=== PATIENT | female | born 1945 | race Caucasian/White ===

== ENCOUNTER 2021-06-09 11:19 | Emergency (ER) | payer MEDICAID ==
[~2021-06-09] VITALS: Ht 149.9 cm; Wt 69.6 kg
[2021-06-09 11:21] VITALS: BP 156/70
--- NOTE | 2021-06-09 11:34 | NUR ---
Patient ambulated with steady gait to bed 6.
[2021-06-09] MEDS ORDERED: KETOROLAC 30 MG/ML VIAL IM ONE (12:00)
[2021-06-09] MEDS ORDERED: IBUP-1842 PO (12:33)
[2021-06-09] MEDS ORDERED: NITR100C7 PO (14:19)
[2021-06-09 15:08] VITALS: BP 145/80
--- NOTE | 2021-06-09 15:08 | NUR ---
Patient discharged with v/s stable. Written and verbal after care instructions ABOUT FLANK PAIN given and explained. Patient alert, oriented and verbalized understanding of instructions. Ambulatory with steady gait. All questions addressed prior to discharge. ID band removed. Patient advised to follow up with PMD. Rx of MOTRIN AND MACROBID given.
--- NOTE | 2021-06-09 15:09 | NUR ---
Chart checked and completed. The patient's care was reviewed and supervised by Kristyn Mena RN.
== END 2021-06-09 15:08 | disposition home or self-care (01) ==
LOC: MED 11:19
DX: N39.0 Urinary tract infection, site not specified (principal); Z88.2 Allergy status to sulfonamides
CPT/HCPCS: 81002; 96372; 99283; J1885

== ENCOUNTER 2021-08-13 15:35 | Emergency (ER) | payer MEDICAID ==
[~2021-08-13] VITALS: Ht 157.5 cm; Wt 109.8 kg
[~2021-08-13 15:35] MED LIST: IBUP-1842 PO; NITR100C7 PO
[2021-08-13 15:41] VITALS: BP 127/62
[2021-08-13] MEDS ORDERED: NACL 0.9% 500 ML IV ONE (17:05)
[2021-08-13 17:37] LABS: BASOPHILS % (AUTO) 0.4 % (0.0-2.0); EOSINOPHILS # (AUTO) 0.1 K/uL (0-0.4); EOSINOPHILS % (AUTO) 1.4 % (0.0-4.0); HEMATOCRIT 37.6 % (36-48); HEMOGLOBIN 12.8 g/dL (12.0-16.0); LYMPHOCYTES # (AUTO) 2.3 K/uL (2.5-16.5); LYMPHOCYTES % (AUTO) 30.9 % (20.5-51.1); MEAN CORPUSCULAR HEMOGLOBIN 30 pg (27-31); MEAN CORPUSCULAR HGB CONC 34 g/dL (33-37); MEAN CORPUSCULAR VOLUME 89.1 fL (80-94); MONOCYTES # (AUTO) 0.7 K/uL (0.8-1.0); MONOCYTES % (AUTO) 9.3 % (1.7-9.3); NEUTROPHILS # (AUTO) 4.2 K/uL (1.8-7.7); PLATELET COUNT (AUTO) 315 K/uL (140-450); RED BLOOD CELL COUNT(AUTO) 4.22 MIL/uL (4.20-5.40); RED CELL DISTRIBUTION WIDTH 13.3 % (11.6-13.7); WHITE BLOOD COUNT (AUTO) 7.3 K/uL (4.8-10.8)
[2021-08-13 17:54] LABS: ANION GAP 14.2 (8-16); CARBON DIOXIDE 24.3 mmol/L (21-32); CHLORIDE 98 mmol/L (98-107); CREATININE 1.3 mg/dL (0.6-1.3); GLUCOSE 359 mg/dL (74-106); POTASSIUM 4.5 mmol/L (3.5-5.1); SODIUM SERUM 132 mmol/L (136-145); UREA NITROGEN, BLOOD 19 mg/dL (7-18)
--- NOTE | 2021-08-13 18:05 | NUR ---
76/F BIB DAUGHTER WITH C/O HYPERGLYCEMIA, REPORTS ABDOMINAL PAIN N/V SINCE THIS MORNING. PATIENT STATES HER SUGAR HAS BEEN IN THE "400S ALL WEEK" 371 IN TRIAGE. PATIENT DENIES TAKING MEDS AT HOME, DENIES WEAKNESS, CONFUSION, DIZZINESS OR VISION CHANGES.
--- NOTE | 2021-08-13 19:00 | NUR ---
LAST ACCUCHECK UPON D/C 330, DR. MCCORMICK AWARE AND STATED PATIENT OKAY TO BE D/C
[2021-08-13 19:18] VITALS: BP 131/63
--- NOTE | 2021-08-13 19:19 | NUR ---
Patient discharged with v/s stable. Written and verbal after care instructions ABOUT HYPERGLYCEMIA AND INSULIN GLARGINE INJECTION given and explained. Patient verbalized understanding. Ambulatory with steady gait. All questions addressed prior to discharge. Advised to follow up with PMD.
--- NOTE | 2021-08-13 19:19 | NUR ---
IV removed, catheter intact and site benign. Applied folded 4x4 gauze and tape to stop bleeding.
== END 2021-08-13 19:10 | disposition home or self-care (01) ==
LOC: MED 15:35
DX: E11.65 Type 2 diabetes mellitus with hyperglycemia (principal); I50.9 Heart failure, unspecified; Z79.2 Long term (current) use of antibiotics; Z79.1 Long term (current) use of non-steroidal anti-inflammatories (NSAID); Z88.2 Allergy status to sulfonamides
CPT/HCPCS: 36415; 80048; 81002; 82948; 83735; 85025; 96360; 99283; J7030

== ENCOUNTER 2022-01-01 15:18 | Emergency (ER) | payer MEDICAID ==
[~2022-01-01] VITALS: Ht 147.3 cm; Wt 69.9 kg
[2022-01-01 15:20] VITALS: BP 137/82
--- NOTE | 2022-01-01 15:32 | NUR ---
PT W/C ASSISTED TO BED 4.
[2022-01-01] MEDS ORDERED: HYDROcodone/APAP 5/325 MG 1 TAB TAB PO ONE (15:45)
--- NOTE | 2022-01-01 16:04 | NUR ---
PT C/O LEFT HIP PAIN RADIATING DOWN LEFT LEG X1 WEEK. DENIES INJURY OR TRAUMA.
[2022-01-01] MEDS ORDERED: LID5T TP (16:58)
[2022-01-01] MEDS ORDERED: CEPH-588 PO (16:58)
[2022-01-01] MEDS ORDERED: ACET-8386 PO (16:58)
--- NOTE | 2022-01-01 17:06 | NUR ---
Patient discharged with v/s stable. Written and verbal after care instructions given and explained. Patient alert, oriented and verbalized understanding of instructions. Ambulatory with steady gait. All questions addressed prior to discharge. ID band removed. Patient advised to follow up with PMD. Rx of NORCO, LIDODERM, KEFLEX given. Patient educated on indication of medication including possible reaction and side effects. Opportunity to ask questions provided and answered.
== END 2022-01-01 17:06 | disposition home or self-care (01) ==
LOC: MED 15:18
DX: S76.012A Strain of muscle, fascia and tendon of left hip, initial encounter (principal); M54.10 Radiculopathy, site unspecified; N39.0 Urinary tract infection, site not specified; E11.9 Type 2 diabetes mellitus without complications; Z79.899 Other long term (current) drug therapy; X58.XXXA Exposure to other specified factors, initial encounter; Y93.89 Activity, other specified; Y92.89 Other specified places as the place of occurrence of the external cause; Y99.8 Other external cause status
CPT/HCPCS: 72170; 73552; 81002; 82948; 87086; 99284; Q0092

== ENCOUNTER 2022-06-16 10:40 | Inpatient (IN) | payer MEDICAID, OTHER ==
[~2022-06-16] VITALS: Ht 139.7 cm; Wt 68.0 kg
[~2022-06-16 10:40] MED LIST changes: +ACET-8905 PO; +CEPH-588 PO; +LID5T TP
[2022-06-16 10:50] VITALS: BP 149/69
[2022-06-16 11:09] LABS: BASOPHILS % (AUTO) 0.4 % (0.0-2.0); EOSINOPHILS % (AUTO) 0.4 % (0.0-4.0); HEMATOCRIT 40.7 % (36-48); HEMOGLOBIN 13.6 g/dL (12.0-16.0); LYMPHOCYTES # (AUTO) 2.2 K/uL (2.5-16.5); LYMPHOCYTES % (AUTO) 21.2 % (20.5-51.1); MEAN CORPUSCULAR HEMOGLOBIN 30 pg (27-31); MEAN CORPUSCULAR HGB CONC 34 g/dL (33-37); MEAN CORPUSCULAR VOLUME 88.9 fL (80-94); MONOCYTES # (AUTO) 0.6 K/uL (0.8-1.0); MONOCYTES % (AUTO) 5.8 % (1.7-9.3); NEUTROPHILS # (AUTO) 7.4 K/uL (1.8-7.7); NEUTROPHILS % (AUTO) 72.2 % (42.2-75.2); PLATELET COUNT (AUTO) 243 K/uL (140-450); RED BLOOD CELL COUNT(AUTO) 4.57 MIL/uL (4.20-5.40); RED CELL DISTRIBUTION WIDTH 15.1 % (11.6-13.7); WHITE BLOOD COUNT (AUTO) 10.3 K/uL (4.8-10.8)
[2022-06-16 11:37] LABS: ALBUMIN 3.8 g/dL (3.4-5.0); ANION GAP 16.1 (8-16); ASPARTATE AMINOTRANSFERASE 27 U/L (15-37); CARBON DIOXIDE 24.4 mmol/L (21-32); CHLORIDE 97 mmol/L (98-107); CREATININE 0.9 mg/dL (0.6-1.3); GLUCOSE 243 mg/dL (74-106); LIPASE 116 U/L (73-393); POTASSIUM 4.5 mmol/L (3.5-5.1); SODIUM SERUM 133 mmol/L (136-145); TOTAL BILIRUBIN 0.5 mg/dL (0.0-1.0); UREA NITROGEN, BLOOD 16 mg/dL (7-18)
[2022-06-16] MEDS ORDERED: ASPIRIN 325 MG TAB PO ONE (12:35)
[2022-06-16] MEDS ORDERED: ASPIRIN 325 MG TAB ONE (12:38)
[2022-06-16] MEDS ORDERED: TRAM50TA3 PO (15:02)
[2022-06-16] MEDS ORDERED: BENA20TA89 PO (15:02)
[2022-06-16] MEDS ORDERED: SITA100T8 PO (15:02)
[2022-06-16] MEDS ORDERED: ATOR20TA40 PO (15:02)
[2022-06-16] MEDS ORDERED: GLIP10TA12 PO (15:02)
[2022-06-16] MEDS ORDERED: CEPH500C16 PO (15:02)
[2022-06-16] MEDS ORDERED: METF-352 PO (15:02)
[2022-06-16] MEDS ORDERED: LORazepam 1 MG TAB PO PRN (15:30)
[2022-06-16] MEDS ORDERED: traMADol 50 MG TAB PO PRN (15:30)
[2022-06-16] MEDS ORDERED: MORPHINE SULFATE 2 MG/ML SYR IVP PRN (15:30)
[2022-06-16] MEDS ORDERED: NITROGLYCERIN 0.4 MG TAB SL PRN (15:30)
[2022-06-16] MEDS ORDERED: ZOLPIDEM 5 MG TAB PO PRN (15:30)
[2022-06-16] MEDS ORDERED: ACETAMINOPHEN 325 MG TAB PO PRN (15:30)
[2022-06-16] MEDS ORDERED: HYDROcodone/APAP 5/325 MG 1 TAB TAB PO PRN (15:30)
--- NOTE | 2022-06-16 15:31 | NUR ---
STEPHAN, NUCLEAR MED CALLED REGARDING ORDER;PER STEPHAN CAMERA IS DOWN, PROVIDED CONTACT # FOR
--- NOTE | 2022-06-16 15:59 | NUR ---
VOIDING PER BEDPAN X3, NOT UNUSUAL PER PT
--- NOTE | 2022-06-16 16:12 | NUR ---
admitted from emergency rn Priyank in rm 119 aox4 tajik speaking with admitting diagnosis ofchest pain. will continue to monitor .
--- NOTE | 2022-06-16 17:07 | NUR ---
Patient will be admitted to care of . Admited to [facility]. Will go to [id number]. Belongings list completed. Report to JAZMIN CEBALLOS.
--- NOTE | 2022-06-16 19:14 | NUR ---
will endorse to line installer rn for continuity of care
--- NOTE | 2022-06-16 19:20 | NUR ---
RECEIVED PATIENT LYING ON THE BED, HOB ELEVATED, PATIENT DENIES CHEST PAIN UPON ASSESSMENT, IN NO ACUTE DISTRESS. FAMILY AT BEDSIDE. CALL LIGHT WITHIN REACH.
[2022-06-16 20:00] VITALS: BP 129/57
[2022-06-16] MEDS ORDERED: DEXTROSE 50% 50 ML SYR IVP PRN (20:45)
[2022-06-16] MEDS: BLOOD GLUCOSE MONITORING 1 DEV DEV FS SCH (21:17)
[2022-06-16] MEDS: SODIUM CHLORIDE FLUSH 10 ML SYR IVF SCH (21:18)
[2022-06-16] MEDS: INSULIN LISPRO SLIDING SCALE 100 UNITS/ML VIAL SUBQ PRN (21:28)
[2022-06-17] VITALS: BP 103/57
--- NOTE | 2022-06-17 00:05 | NUR ---
VITALS TAKEN, T 97.9, P 78, BP 103/57, RESP 16 AND O2 SATS 98% ON ROOM AIR. PATIENT DENIES CHEST PAIN, DENIES SOB. CALL LIGHT WITHIN REACH.
[2022-06-17 04:00] VITALS: BP 119/72
--- NOTE | 2022-06-17 04:10 | NUR ---
VITALS TAKEN T 98.1, P 72, BP 119/72, RESP 16 AND O2 SATS 97% ON ROOM AIR. PATIENT ASSISTED TO THE RESTROOM, DENIES CHEST PAIN, NO SIGNS OF DISTRESS NOTED. CALL LIGHT WITHIN REACH.
[2022-06-17] MEDS: SODIUM CHLORIDE FLUSH 10 ML SYR IVF SCH ×2 (05:20→15:45)
[2022-06-17 06:28] LABS: ANION GAP 13.7 (8-16); CARBON DIOXIDE 28.4 mmol/L (21-32); CHLORIDE 102 mmol/L (98-107); GLUCOSE 140 mg/dL (74-106); POTASSIUM 5.1 mmol/L (3.5-5.1); SODIUM SERUM 139 mmol/L (136-145); UREA NITROGEN, BLOOD 19 mg/dL (7-18)
[2022-06-17] MEDS: BLOOD GLUCOSE MONITORING 1 DEV DEV FS SCH ×2 (06:34→12:03)
--- NOTE | 2022-06-17 07:08 | NUR ---
receive the patient from the night rn in rm 119B aox4 ambulatory with admitting diagnosis of chest pain . will continue to monitor
--- NOTE | 2022-06-17 07:24 | NUR ---
PATIENT IN STABLE CONDITION. WILL ENDORSE TO DAY NURSE FOR CONTINUITY OF CARE.
[2022-06-17 08:00] VITALS: BP 125/51
[2022-06-17] MEDS ORDERED: ATORVASTATIN 20 MG TAB PO SCH (09:00)
[2022-06-17] MEDS ORDERED: BENAZEPRIL 20 MG TAB PO SCH (09:00)
--- NOTE | 2022-06-17 09:07 | NUR ---
PATIENT HAS BEEN SCREENED AND CATEGORIZED MODERATE NUTRITION RISK. PATIENT WILL BE SEEN WITHIN 3-5 DAYS OF ADMISSION. REVIEWED BY JUAN CARLOS MARKS RD
[2022-06-17 12:00] VITALS: BP 126/64
[2022-06-17] MEDS: INSULIN LISPRO SLIDING SCALE 100 UNITS/ML VIAL SUBQ PRN (12:05)
[2022-06-17] MEDS ORDERED: REGADENOSON 0.4 MG/5 ML SYR IV PRN (15:25)
[2022-06-17] MEDS ORDERED: LORA-476 PO (15:59)
[2022-06-17 16:52] VITALS: BP 130/78
[2022-06-17] MEDS ORDERED: ASPI-1129 PO (17:12)
--- NOTE | 2022-06-17 18:18 | NUR ---
made some discharge patient teaching . patient stable . no sign and symptoms of respiratory distress . no complain of pain . will bring to the lobby with grand daughter to a waiting private car .
--- NOTE | 2022-06-20 15:40 | NUR ---
CALLED DR STROUD'S OFFICE LOCATED AT [address] [place] [address]. SPOKE WITH ALEC WHO INFORMED ME PT HAD A FOLLOW UP APPOINTMENT 06/20/2022 AT 1500.
== END 2022-06-17 18:20 | disposition home or self-care (01) | DRG 203 ==
LOC: MED 10:40 → MTU 15:31 → OBSVTOIN 15:31 → MTU 16:35
PROVIDERS: ADMIT Hospitalist; ATTEND Hospitalist
DX: R07.89 Other chest pain (principal); E87.8 Other disorders of electrolyte and fluid balance, not elsewhere classified; E87.1 Hypo-osmolality and hyponatremia; E78.5 Hyperlipidemia, unspecified; Z20.822 Contact with and (suspected) exposure to COVID-19; I10 Essential (primary) hypertension; E11.65 Type 2 diabetes mellitus with hyperglycemia; Z79.891 Long term (current) use of opiate analgesic; Z79.899 Other long term (current) drug therapy; Z88.2 Allergy status to sulfonamides; Z90.49 Acquired absence of other specified parts of digestive tract; Z98.891 History of uterine scar from previous surgery
CPT/HCPCS: 36415; 71045; 80048; 80053; 82948; 83690; 83735; 84484; 85025; 85379; 93005; 99285; Q0092